=== PATIENT | female | born 1975 | race Caucasian/White ===

== ENCOUNTER → 2022-07-29 | Outpatient (CLI) | payer BC | LOC: MC.RAD 14:00 | DX: N60.02 Solitary cyst of left breast (principal); N63.11 Unspecified lump in the right breast, upper outer quadrant ==

== ENCOUNTER 2024-07-14 09:07 | Day surgery (SDC) | payer BC ==
[~2024-07-14] VITALS: Ht 162.6 cm; Wt 62.0 kg
[~2024-07-14 09:07] MED LIST: LR 1,000 ML IV SCH; Ondansetron 4 MG/2 ML VIAL IV PRN
[2024-07-14] MEDS ORDERED: VALTREX 50500 MG/TAB PO (09:38)
[2024-07-14] MEDS ORDERED: CELEXA40 MG PO (09:38)
[2024-07-14] MEDS ORDERED: WELLBUTRIN XL150 MG PO (09:39)
[2024-07-14] MEDS ORDERED: ABILIFY 15MG TA15 MG PO (09:39)
[2024-07-14] MEDS ORDERED: ABILIFY30 MG PO (09:39)
[2024-07-14] MEDS ORDERED: STRATTERA 25MG25 MG PO (09:40)
[2024-07-14] MEDS ORDERED: WELLBUTRIN XL300 M1 PO (09:41)
[2024-07-14] MEDS ORDERED: ESTROVEN MAX400 MCG (09:41)
[2024-07-14 10:03] VITALS: BP 94/69; PULSE 87; TEMP 97.8
[2024-07-14] MEDS ORDERED: Lidocaine PF 2% (20 MG/ML) 5 ML VIAL ONE (10:22)
[2024-07-14 11:30] VITALS: BP 101/38; PULSE 88; TEMP 97.8
[2024-07-14 11:45] VITALS: BP 102/74; PULSE 82
--- NOTE | 2024-07-14 13:34 | NUR ---
1130- Pt returns from procedure on cart, ambulates to recliner chair with steady gait and assist of 2. IV fluids infusing through right hand IV site. Per procedure nurse, pt hypotensive through the case, EMANUEL Josselyn states to finish the bag of LR. Pt and report her blood pressure is often low. Pt denies any complaints at this time. Feet elevated on recliner chair, call light within reach. Water, jello, and pudding given to patient. 1146- Discharge instructions given to patient, Questions answered. Dr. Thompson in at this time to speak with patient. 1157- IV removed, pt dressed at this time. 1205- Pt discharges to husbands car via w/c at this time. Denies any complaints.
== END 2024-07-14 12:05 | disposition home or self-care (01) ==
LOC: SDCO 09:07
DX: K62.1 Rectal polyp (principal); K59.00 Constipation, unspecified; K63.5 Polyp of colon; K62.89 Other specified diseases of anus and rectum; K57.30 Diverticulosis of large intestine without perforation or abscess without bleeding; R14.0 Abdominal distension (gaseous); R10.9 Unspecified abdominal pain; R19.7 Diarrhea, unspecified; R14.3 Flatulence; R10.13 Epigastric pain; Z87.891 Personal history of nicotine dependence
CPT/HCPCS: J2704; J7120